=== PATIENT | male | born 1935 | race Caucasian/White ===

== ENCOUNTER → 2016-12-21 | Outpatient (CLI) | payer MEDICARE ==
[2016-12-21 07:23] LABS: HEMOGLOBIN 14.1 gm/dl (14.0-17.5); RED BLOOD COUNT 4.86 M/UL (4.20-5.50); WHITE BLOOD COUNT 7.8 K/UL (4.5-11.0)
== END ==
LOC: LAB 06:47
PROVIDERS: Internal Medicine Interventional Cardiology
DX: I48.0 Paroxysmal atrial fibrillation (principal); R00.2 Palpitations; I10 Essential (primary) hypertension
CPT/HCPCS: 36415; 80053; 85025

== ENCOUNTER → 2020-09-21 | Outpatient (CLI) | payer MEDICARE, OTHER ==
[~2020-09-21] MED LIST: BETAPACE80 MG PO; CARDIZEM120 MG PO; ECOTRIN81 MG PO; ELIQUIS 5 MG TAB5 MG PO; FLOMAX 0.4 MG0.4 MG PO; LISINOPRIL40 MG PO; METHIMAZOLE5 MG PO; OMNICEF 300 MG300 MG PO
== END ==
LOC: HEART 5 15:05
DX: R06.02 Shortness of breath (principal); I48.0 Paroxysmal atrial fibrillation; I27.20 Pulmonary hypertension, unspecified; I08.1 Rheumatic disorders of both mitral and tricuspid valves
CPT/HCPCS: 93306

== ENCOUNTER → 2020-09-22 | Day surgery (SDC) | payer MEDICARE, OTHER | END | disposition home or self-care (01) | LOC: CATH 07:06 | DX: I48.0 Paroxysmal atrial fibrillation (principal); I11.9 Hypertensive heart disease without heart failure; I08.3 Combined rheumatic disorders of mitral, aortic and tricuspid valves; E78.00 Pure hypercholesterolemia, unspecified; D64.9 Anemia, unspecified; F10.10 Alcohol abuse, uncomplicated; Z79.01 Long term (current) use of anticoagulants; Z79.82 Long term (current) use of aspirin; Z79.899 Other long term (current) drug therapy; Z82.49 Family history of ischemic heart disease and other diseases of the circulatory system; Z87.891 Personal history of nicotine dependence | CPT/HCPCS: 92960; 93005; 93312; 93320; J1200; J2250; J2310; J3010; J7040 ==

== ENCOUNTER 2020-09-25 09:36 | Emergency (ER) | payer MEDICARE, OTHER ==
[2020-09-25 11:09] LABS: HEMOGLOBIN 13.1 gm/dl (14.0-17.5); RED BLOOD COUNT 4.55 M/UL (4.20-5.50)
[2020-09-25 11:27] LABS: BUN/CREATININE RATIO 13 (0-10)
== END 2020-09-25 12:30 | disposition home or self-care (01) ==
LOC: ER1 09:36
PROVIDERS: Physician Assistant
DX: I10 Essential (primary) hypertension (principal); I48.91 Unspecified atrial fibrillation
CPT/HCPCS: 80053; 85025; 93005; 99283